=== PATIENT | male | born 1930 | race Caucasian/White ===

== ENCOUNTER 2018-09-11 08:40 | Emergency (ER) | payer MEDICARE, OTHER ==
--- NOTE | 2018-09-11 08:56 | ED ---
General Adult HPI - General Chief complaint: Arrhythmia/Palpitations Stated complaint: BRADYCARDIA Time Seen by Provider: 09/11/18 08:43 Source: patient, EMS, RN notes reviewed Mode of arrival: EMS Limitations: altered mental status - History of Present Illness Initial comments: Patient is a pleasant 87-year-old male presenting to the emergency department from sn[facility]. They did routine vital signs today and heart rate was in the 30s and blood pressure systolic of 90. Patient had no complaints. Patient still has no complaints. No reported history of similar symptoms previously. No reported fevers. No reported weakness or fatigue. - Related Data Home Medications Medication Instructions Recorded Confirmed Acetaminophen [Tylenol 8 Hour] 650 mg PO Q8H 09/11/18 09/11/18 Acetaminophen [Tylenol] 650 mg PO Q6H PRN 09/11/18 09/11/18 Allopurinol [Zyloprim] 100 mg PO DAILY@0609/11/18 09/11/18 Aspirin EC [Ecotrin Low Dose] 81 mg PO DAILY@139909/11/18 09/11/18 Ferrous Sulfate [Iron] 325 mg PO DAILY@139909/11/18 09/11/18 Gabapentin [Neurontin] 300 mg PO HS@199909/11/18 09/11/18 INSULIN LISPRO (HumaLOG) [HumaLOG] 4 units SQ TID@0700,1100,1600 09/11/18 09/11/18 Insulin Glargine [Lantus] 16 unit SQ HS@199909/11/18 09/11/18 Ketoconazole 2% Cream [Nizoral 2%] 1 applic TOPICAL DAILY@219909/11/18 09/11/18 Latanoprost [Xalatan 0.005%] 1 drop BOTH EYES HS@199909/11/18 09/11/18 Levothyroxine Sodium [Synthroid] 25 mcg PO DAILY@59909/11/18 09/11/18 Lisinopril [Prinivil] 10 mg PO DAILY@59909/11/18 09/11/18 Loperamide [Imodium] 2 mg PO QID PRN 09/11/18 09/11/18 Magnesium Hydroxide [Milk of 2,400 mg PO DAILY PRN 09/11/18 09/11/18 Magnesia] Magnesium Oxide [Mag-Ox] 400 mg PO DAILY@1400 09/11/18 09/11/18 Miconazole Nitrate [Miconazole 1 applic TOPICAL BID@0600,2200 09/11/18 09/11/18 Nitrate 2%] Pravastatin Sodium [Pravachol] 40 mg PO HS@199909/11/18 09/11/18 Primidone [Mysoline] 50 mg PO DAILY@0600 09/11/18 09/11/18 Ranitidine HCl [Zantac] 150 mg PO HS@199909/11/18 09/11/18 amLODIPine BESYLATE [Norvasc] 10 mg PO DAILY@0600 09/11/18 09/11/18 metFORMIN HCL [Glucophage] 500 mg PO BID@0600,199909/11/18 09/11/18 Previous Rx's Medication Instructions Recorded Azithromycin [Zithromax Z-pack] 250 mg PO DIRECTED #6 tab 09/11/18 Allergies Allergy/AdvReac Type Severity Reaction Status Date / Time Penicillins Allergy Unknown Verified 09/11/18 09:23 Review of Systems ROS Statement: Those systems with pertinent positive or pertinent negative responses have been documented in the HPI. ROS Other: All systems not noted in ROS Statement are negative. Constitutional: Denies: fever, chills Eyes: Denies: eye pain ENT: Denies: ear pain Respiratory: Denies: cough Cardiovascular: Denies: chest pain, palpitations Endocrine: Denies: fatigue Gastrointestinal: Denies: abdominal pain Genitourinary: Denies: dysuria Musculoskeletal: Denies: back pain Skin: Denies: rash Neurological: Denies: weakness Past Medical History Past Medical History: Diabetes Mellitus, Hypertension, Osteoarthritis (OA), Renal Disease Additional Past Medical History / Comment(s): URINE RETENTION, WEAKNESS, AMEMIA, TREMORS History of Any Multi-Drug Resistant Organisms: None Reported Past Surgical History: Unable to Obtain Past Psychological History: No Psychological Hx Reported Smoking Status: Never smoker Past Alcohol Use History: None Reported Past Drug Use History: None Reported General Exam Limitations: no limitations, language barrier Head exam: Present: normocephalic Eye exam: Present: normal appearance ENT exam: Present: normal oropharynx Neck exam: Present: normal inspection Respiratory exam: Present: normal lung sounds bilaterally Cardiovascular Exam: Present: tachycardia GI/Abdominal exam: Present: soft. Absent: tenderness Extremities exam: Present: normal inspection Neurological exam: Present: alert Expanded Patient oriented to: Absent: place, time Psychiatric exam: Present: normal affect, normal mood Skin exam: Present: normal color Course Vital Signs 09/11/18 09/11/18 08:42 10:00 Temperature 98.0 F Pulse Rate 59 L 58 L Respiratory 18 18 Rate Blood Pressure 142/74 119/52 O2 Sat by Pulse 97 99 Oximetry EKG Findings - EKG Comments: EKG Findings:: Since bradycardia at 58. First-degree AV block with a AR of 272. QRS 96. QT 446. QTc 437. Left axis. Normal QRS. No acute ST change. PVCs present. Medical Decision Making - Medical Decision Making Patient reevaluated and resting comfortably in bed. Heart rate remains in the upper 50s. Patient updated. Case was discussed with Dr. Whitehead who is comfortable with discharge of patient. Patient has no white blood cell count and no fever. Patient will be covered with antibiotics for possible pneumonia. - Lab Data Result diagrams: 09/11/18 09:05 09/11/18 09:05 Lab Results 09/11/18 09/11/18 09/11/18 Range/Units 09:05 09:05 09:05 WBC 6.5 (3.8-10.6) k/uL RBC 5.07 (4.30-5.90) m/uL Hgb 12.8 L (13.0-17.5) gm/dL Hct 41.0 (39.0-53.0) % MCV 80.9 (80.0-100.0) fL MCH 25.2 (25.0-35.0) pg MCHC 31.1 (31.0-37.0) g/dL RDW 18.7 H (11.5-15.5) % Plt Count 240 (150-450) k/uL Neutrophils % 66 % Lymphocytes % 22 % Monocytes % 5 % Eosinophils % 6 % Basophils % 1 % Neutrophils # 4.2 (1.3-7.7) k/uL Lymphocytes # 1.4 (1.0-4.8) k/uL Monocytes # 0.3 (0-1.0) k/uL Eosinophils # 0.4 (0-0.7) k/uL Basophils # 0.1 (0-0.2) k/uL Hypochromasia Slight Anisocytosis Slight Microcytosis Slight PT 10.4 (9.0-12.0) sec INR 1.0 (<1.2) APTT 27.7 (22.0-30.0) sec Sodium 141 (137-145) mmol/L Potassium 4.4 (3.5-5.1) mmol/L Chloride 110 H (98-107) mmol/L Carbon Dioxide 24 (22-30) mmol/L Anion Gap 7 mmol/L BUN 21 H (9-20) mg/dL Creatinine 0.66 (0.66-1.25) mg/dL Est GFR (CKD-EPI)AfAm >90 (>60 ml/min/1.73 sqM) Est GFR (CKD-EPI)NonAf 87 (>60 ml/min/1.73 sqM) Glucose 86 (74-99) mg/dL Calcium 8.5 (8.4-10.2) mg/dL Magnesium 1.8 (1.6-2.3) mg/dL Total Bilirubin 0.5 (0.2-1.3) mg/dL AST 11 L (17-59) U/L ALT 16 L (21-72) U/L Alkaline Phosphatase 80 (38-126) U/L Troponin I (0.000-0.034) ng/mL Total Protein 5.8 L (6.3-8.2) g/dL Albumin 3.0 L (3.5-5.0) g/dL TSH 2.390 (0.465-4.680) mIU/L Free T4 1.05 (0.78-2.19) ng/dL Free T3 pg/mL 2.9 (2.8-5.3) pg/ml Urine Color Urine Appearance (Clear) Urine pH (5.0-8.0) Ur Specific [place] (1.001-1.035) Urine Protein (Negative) Urine Glucose (UA) (Negative) Urine Ketones (Negative) Urine Blood (Negative) Urine Nitrite (Negative) Urine Bilirubin (Negative) Urine Urobilinogen (<2.0) mg/dL Ur Leukocyte Esterase (Negative) Urine RBC (0-5) /hpf Urine WBC (0-5) /hpf Urine Mucus (None) /hpf 09/11/18 09/11/18 Range/Units 09:05 09:05 WBC (3.8-10.6) k/uL RBC (4.30-5.90) m/uL Hgb (13.0-17.5) gm/dL Hct (39.0-53.0) % MCV (80.0-100.0) fL MCH (25.0-35.0) pg MCHC (31.0-37.0) g/dL RDW (11.5-15.5) % Plt Count (150-450) k/uL Neutrophils % % Lymphocytes % % Monocytes % % Eosinophils % % Basophils % % Neutrophils # (1.3-7.7) k/uL Lymphocytes # (1.0-4.8) k/uL Monocytes # (0-1.0) k/uL Eosinophils # (0-0.7) k/uL Basophils # (0-0.2) k/uL Hypochromasia Anisocytosis Microcytosis PT (9.0-12.0) sec INR (<1.2) APTT (22.0-30.0) sec Sodium (137-145) mmol/L Potassium (3.5-5.1) mmol/L Chloride (98-107) mmol/L Carbon Dioxide (22-30) mmol/L Anion Gap mmol/L BUN (9-20) mg/dL Creatinine (0.66-1.25) mg/dL Est GFR (CKD-EPI)AfAm (>60 ml/min/1.73 sqM) Est GFR (CKD-EPI)NonAf (>60 ml/min/1.73 sqM) Glucose (74-99) mg/dL Calcium (8.4-10.2) mg/dL Magnesium (1.6-2.3) mg/dL Total Bilirubin (0.2-1.3) mg/dL AST (17-59) U/L ALT (21-72) U/L Alkaline Phosphatase (38-126) U/L Troponin I <0.012 (0.000-0.034) ng/mL Total Protein (6.3-8.2) g/dL Albumin (3.5-5.0) g/dL TSH (0.465-4.680) mIU/L Free T4 (0.78-2.19) ng/dL Free T3 pg/mL (2.8-5.3) pg/ml Urine Color Yellow Urine Appearance Cloudy (Clear) Urine pH 6.5 (5.0-8.0) Ur Specific [place] 1.016 (1.001-1.035) Urine Protein 1+ H (Negative) Urine Glucose (UA) Negative (Negative) Urine Ketones Negative (Negative) Urine Blood Trace H (Negative) Urine Nitrite Negative (Negative) Urine Bilirubin Negative (Negative) Urine Urobilinogen <2.0 (<2.0) mg/dL Ur Leukocyte Esterase Large H (Negative) Urine RBC 13 H (0-5) /hpf Urine WBC 15 H (0-5) /hpf Urine Mucus Rare H (None) /hpf - Radiology Data Radiology results: image reviewed (Chest x-ray shows some patchy infiltrate right mid and base, possible early infiltrate.) Disposition Clinical Impression: Bradycardia, Pneumonia Disposition: HOME SELF-CARE Condition: Stable Instructions (If sedation given, give patient instructions): Bradycardia (ED), Pneumonia (ED) Additional Instructions: Please check heart rate and blood pressure 3-4 times daily for the next several days. Please follow-up with primary care physician in the next day or 2 for recheck. Return for low heart rate, low blood pressure, fevers, difficulty breathing, worsening symptoms or other concerns. Prescriptions: Azithromycin [Zithromax Z-pack] 250 mg PO DIRECTED #6 tab Is patient prescribed a controlled substance at d/c from ED?: No Referrals: Demetri Aragon MD [Primary Care Provider] - 1-2 days Time of Disposition: 12:29
--- NOTE | 2018-09-11 09:27 | XR ---
EXAMINATION TYPE: XR chest 2V DATE OF EXAM: 09/11/2018 COMPARISON: 01/02/2014 HISTORY: 87-year-old male with dysrhythmia TECHNIQUE: AP and lateral views FINDINGS: Heart normal size. Mild elongation thoracic aorta. Mild interstitial prominence appears largely chron ic. There is some focal patchy peripheral right midlung opacity and additional patchy posterior basil ar opacity on the lateral view. No sizable pleural effusion. IMPRESSION: Patchy peripheral right midlung and posterior basilar densities. Correlate for potential pneumonia. F ollow-up recommended.
[2018-09-11 09:32] LABS: ALT 16 U/L (21-72); AST 11 U/L (17-59); Alkaline Phosphatase 80 U/L (38-126); Anion Gap 7 mmol/L; Blood Urea Nitrogen 21 mg/dL (9-20); Calcium 8.5 mg/dL (8.4-10.2); Carbon Dioxide 24 mmol/L (22-30); Chloride 110 mmol/L (98-107); Glucose 86 mg/dL (74-99); Magnesium 1.8 mg/dL (1.6-2.3); Potassium 4.4 mmol/L (3.5-5.1); Sodium 141 mmol/L (137-145); Total Bilirubin 0.5 mg/dL (0.2-1.3); Total Protein 5.8 g/dL (6.3-8.2)
[2018-09-11 09:37] LABS: Partial Thromboplastin Time 27.7 sec (22.0-30.0); Prothrombin Time 10.4 sec (9.0-12.0)
[2018-09-11 09:49] LABS: Anisocytosis Slight; Basophils # (A) 0.1 k/uL (0-0.2); Basophils % (A) 1 %; Eosinophils # (A) 0.4 k/uL (0-0.7); Eosinophils % (A) 6 %; HGB 12.8 gm/dL (13.0-17.5); Hypochromasia Slight; Lymphocytes # (A) 1.4 k/uL (1.0-4.8); Lymphocytes % (A) 22 %; MCH 25.2 pg (25.0-35.0); MCHC 31.1 g/dL (31.0-37.0); MCV 80.9 fL (80.0-100.0); Mean Platelet Volume 7.9; Microcytosis Slight; Monocytes # (A) 0.3 k/uL (0-1.0); Monocytes % (A) 5 %; Neutrophils # (A) 4.2 k/uL (1.3-7.7); Neutrophils % (A) 66 %; Platelet Count 240 k/uL (150-450); RBC 5.07 m/uL (4.30-5.90); RDW 18.7 % (11.5-15.5); T4, Free (Free Thyroxine) 1.05 ng/dL (0.78-2.19); WBC 6.5 k/uL (3.8-10.6)
[2018-09-11 09:51] LABS: Appearance,Urine Cloudy (Clear); Bilirubin,Urine Negative (Negative); Blood,Urine Trace (Negative); Color,Urine Yellow; Glucose,Urine (UA) Negative (Negative); Ketones,Urine Negative (Negative); Leukocyte Esterase,Urine Large (Negative); Mucus,Urine Rare /hpf; Nitrite,Urine Negative (Negative); PH, Urine 6.5 (5.0-8.0); Protein,Urine 1+ (Negative); RBC,Urine 13 /hpf (0-5); Specific Gravity,Urine 1.016 (1.001-1.035); Urobilinogen,Urine <2.0 mg/dL (<2.0); WBC,Urine 15 /hpf (0-5)
[2018-09-11] MEDS ORDERED: AZITHROMYCIN 500 MG TAB PO STA (12:30)
[2018-09-11 12:47] VITALS: BP 134/84; PULSE 82; RESP 20; TEMP 98.1
== END 2018-09-11 14:24 | disposition home or self-care (01) ==
LOC: EC 08:40
DX: J18.9 Pneumonia, unspecified organism (principal); R00.1 Bradycardia, unspecified; E11.9 Type 2 diabetes mellitus without complications; I10 Essential (primary) hypertension; M19.90 Unspecified osteoarthritis, unspecified site; D64.9 Anemia, unspecified; Z79.82 Long term (current) use of aspirin; Z79.4 Long term (current) use of insulin; Z79.890 Hormone replacement therapy; Z79.899 Other long term (current) drug therapy; Z88.0 Allergy status to penicillin
CPT/HCPCS: 36415; 71046; 80053; 81001; 83735; 84439; 84443; 84481; 84484; 85025; 85610; 85730; 87086; 93005; 99285